=== PATIENT | male | born 1945 | race Caucasian/White ===

== ENCOUNTER → 2023-06-25 08:49 | Outpatient (REF) | payer OTHER, SELFPAY | LOC: DHCBC MAIN 08:49 | PROVIDERS: ATTENDING PHYSICIAN Internal Medicine; FAMILY PHYSICIAN Physician Assistant | DX: I48.0 Paroxysmal atrial fibrillation (principal); I10 Essential (primary) hypertension; I35.1 Nonrheumatic aortic (valve) insufficiency; I77.810 Thoracic aortic ectasia; R42 Dizziness and giddiness | CPT/HCPCS: 93306 ==

== ENCOUNTER 2024-11-10 12:28 | Emergency (ER) | payer OTHER, SELFPAY ==
[2024-11-10] VITALS (30 sets, daily range): BP systolic 126–149; BP diastolic 71–101; BMI 28.1
--- NOTE | 2024-11-10 14:29 | ED.GENMED ---
History of Present Illness
<JOAN Victor - Last Filed: 11/10/24 19:52>
General
Chief Complaint: Heart Rate Problem
Source: patient
Exam Limitations: none
Time Seen by Provider: 11/10/24 14:10
Nursing documentation reviewed up to this point in time: agreed with
History of Present Illness
History of Present Illness:
Patient is a 79-year-old male with past with history of A-fib presents to the ER for evaluation of A-fib. Patient reports yesterday morning around 5:15 in the morning he went into A-fib. Typically he has a normal sinus rhythm but reports he cannot
tell the exact time he goes into A-fib. He broke out a typical sweat and felt his pulse which was irregular. He does not take Eliquis daily as prescribed however he does take when he goes into A-fib. He took a dose of Eliquis yesterday morning.
He also took additional metoprolol. He has taken 3 doses of Eliquis since he went into A-fib for persistent A-fib. He was sent by Dr. Cadet for cardioversion. Dr. Cadet is aware the patient is here.
Patient denies any recent fever chills chest pain shortness of breath. He last ate at midnight.
Past History
<JOAN Victor - Last Filed: 11/10/24 19:52>
Past History
ED Past Medical History: Arrthythmia (recurrent A Fib), GERD, HTN, Hypercholesterolemia, Valvular disease (MR, aortic regurg) and Other (BPH); Negative NIDDM
ED Past Surgical History: Cardiac (multiple ablations/cardioversions) and Other (Left inguinal herniorrhaphy )
Social History
Tobacco: Smoker (Occasional cigars )
Alcohol: None
Drug: Marijuana
Personal:
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
Family History
Family History: Other ([place])
Phy Exam
<JOAN Victor - Last Filed: 11/10/24 19:52>
General Physical Exam
General Presentation: no apparent distress
General age: appears stated age
General Skin: warm and dry
General Habitus: normal
General Mental: alert
General Hydration: appears well hydrated
Cardiovascular Exam
Cardiovascular Exam: no edema, no gallop and irregularly irregular
Pulmonary Exam
Pulmonary Exam: lungs clear and no respiratory distress
Neurological Exam
Neurological Exam: alert and oriented x3
Musculoskeletal Exam
Musculoskeletal Exam: full ROM
Skin Exam
Skin Exam: normal color and warm/dry
Psychiatric Exam
Psychiatric Exam: normal mood/affect
Course
<JOAN Victor - Last Filed: 11/10/24 19:52>
Orders/Labs/Results
Orders:
Orders
11/10/24 12:29
Electrocardiogram (*1) Urgent
Reason for Study: Atrial Fibrillation
EKG- Treatment ONCE
11/10/24 14:31
IV Insert/Care/Rem.- Treatment PRN
11/10/24 14:46
Complete Blood Count/With Diff Urgent
Comprehensive Metabolic Panel Urgent
11/10/24 14:55
0.9% Sodium Chloride 1000 ml [Nss] 1,000 ml IV BOLUS
11/10/24 16:16
Propofol [Diprivan] 20 ml .ROUTE .STK-MED
11/10/24 18:09
Electrocardiogram (*1) Urgent
Reason for Study: Atrial Fibrillation
EKG- Treatment ONCE
Abnormal Lab Results
11/10/24
14:46
Absolute Monos (auto) 0.8 H 10^3/uL
(0.1-0.6)
BUN 21 H mg/dl
(9-20)
Total Bilirubin 1.4 H mg/dl
(0.2-1.3)
11/10/24 14:46
11/10/24 14:46
Vital Signs
Initial and Last Documented VS:
Initial Vital Signs
Temp Pulse Resp BP Pulse Ox
97.8 F 109 20 133/92 98
11/10/24 12:34 11/10/24 12:34 11/10/24 12:34 11/10/24 12:34 11/10/24 12:34
Last Documented Vital Signs
Temp Pulse Resp BP Pulse Ox
97.8 F 65 19 147/84 97
11/10/24 18:32 11/10/24 19:30 11/10/24 19:30 11/10/24 19:30 11/10/24 18:55
Post Doctoral Researcher consulted with Physician
Post Doctoral Researcher consulted with physician?: Yes
Name of Physician Consulted: Anibal
<Darrion Barnett MD - Last Filed: 11/10/24 18:16>
Orders/Labs/Results
Orders:
Orders
11/10/24 12:29
Electrocardiogram (*1) Urgent
Reason for Study: Atrial Fibrillation
EKG- Treatment ONCE
11/10/24 14:31
IV Insert/Care/Rem.- Treatment PRN
11/10/24 14:46
Complete Blood Count/With Diff Urgent
Comprehensive Metabolic Panel Urgent
11/10/24 14:55
0.9% Sodium Chloride 1000 ml [Nss] 1,000 ml IV BOLUS
11/10/24 16:16
Propofol [Diprivan] 20 ml .ROUTE .STK-MED
11/10/24 18:09
Electrocardiogram (*1) Urgent
Reason for Study: Atrial Fibrillation
EKG- Treatment ONCE
Abnormal Lab Results
11/10/24
14:46
Absolute Monos (auto) 0.8 H 10^3/uL
(0.1-0.6)
BUN 21 H mg/dl
(9-20)
Total Bilirubin 1.4 H mg/dl
(0.2-1.3)
11/10/24 14:46
11/10/24 14:46
Vital Signs
Initial and Last Documented VS:
Initial Vital Signs
Temp Pulse Resp BP Pulse Ox
97.8 F 109 20 133/92 98
11/10/24 12:34 11/10/24 12:34 11/10/24 12:34 11/10/24 12:34 11/10/24 12:34
Last Documented Vital Signs
Temp Pulse Resp BP Pulse Ox
97.8 F 65 19 147/84 97
11/10/24 18:32 11/10/24 19:30 11/10/24 19:30 11/10/24 19:30 11/10/24 18:55
Procedures
<Darrion Barnett MD - Last Filed: 11/10/24 18:16>
Cardioversion
Indication:: Afib
Performed by:: Myself
Synchronized?: Yes
Energy Used: 200 joules
Number of attempts: 2... First at 150
Successful?: Yes
ASA Risk Score: Class II
Any reaction or bad outcome to prior sedation/anesthesia?: No history of a reaction
Sedation level to be attained: moderate
Chart and allergies reviewed: Yes
Patient reassessed prior to sedation: Yes
Time out completed at (validating right patient & procedure): 18:05
History of difficult intubation: No
Airway free of obstruction: Yes
Patient has a gag reflex: Yes
Patient is able to open mouth: Yes
Patient has no dentures: Yes
Patient has no loose teeth: Yes
Medication administered by Provider during Moderate Sedation: IV Propofol (mg)
Total dose administered: 60
Time drug administered: 18:07
Start Time: 18:07
Stop Time: 18:18
<JOAN Victor - Last Filed: 11/10/24 19:52>
MDM/Problems Addressed
Differential Diagnosis Includes:
Not limited to arrhythmia, A-fib
MDM/Problems Addressed:
Patient is a 79-year-old male who presents to the ER for evaluation of rapid A-fib. Patient has a history of A-fib however has had ablations in the past and is followed by Dr. Issa cardiology. He is not chronically on Eliquis he only takes it
when he goes into A-fib. He reports that 515 yesterday morning he woke up broke out in a sweat and felt that he was in A-fib and took Eliquis at that time. He has no chest pain or shortness of breath. Case discussed with cardiology Dr. Cadet.
Case discussed with Dr. Barnett. With A-fib being under 48 hours cardioversion was done and successful.
Patient is aware and agreeing to take Eliquis for the next 30 days and to follow-up with Dr. Cadet.
Chronic conditions affecting care:
A-fib hypertension
<JOAN Victor - Last Filed: 11/10/24 19:52>
*Pulse Oximetry
SaO2: 98
Oxygen Mode of Delivery: Room air
Patient hypoxic: no
*EKG
Interpreted by ED Provider?: Yes
Heart Rate: 99
Rate: normal
Rhythm: a-fib
Ischemia: no ischemia
*Critical Care Note
Total Time (30-74mins, 75-104mins- exclusive of procedures): Not Applicable
<JOAN Victor - Last Filed: 11/10/24 19:52>
Patient Management
Discussion with other providers: Claims Director (DR Cadet )
ED Attending Note
<JOAN Victor - Last Filed: 11/10/24 19:52>
-
Portions of this chart may have been created with voice recognition software.� Occasional wrong word or��sound alike� substitutions may have occurred due to the inherent limitations of voice recognition software.
<Darrion Barnett MD - Last Filed: 11/10/24 18:16>
ED Attending Note
Patient seen and examined by attending physician: Yes
I performed the substantive portion of visit, reviewed & personally made and approve the management plan that is documented in note by myself or AHSAN.: Yes
ED Attending Note:
79-year-old male is absolutely sure he went into atrial fibrillation at 515 yesterday morning. Gets suddenly sweaty with a rapid pulse. No chest pain or shortness of breath. History of same. Started on Eliquis then. Does not take Eliquis
chronically. Has been cardioverted in the past. Denies other complaints.
On exam patient is nontoxic in no distress. Warm and dry. Perfusing well. Stable vital signs. Mildly irregular rhythm. Lungs are clear and equal. Abdomen nontender. Warm and dry. Perfusing well.
EKG shows atrial fibrillation.
Patient is a candidate because this has been less than 48 hours. He is sure of the timing. We had discussed with his train clerk who was comfortable with cardioversion. Patient would actually prefer cardioversion. He is aware of the risk.
Patient tolerated the procedure well. First at 150 that a 200. Normal sinus rhythm. Repeat EKG normal sinus rhythm no acute changes.
Discharge Plan
Departure
Patient Disposition: Home (Routine Discharge)
Patient with high blood pressure during this ER visit?: Yes
Condition: Fair
Covid-19: Not Applicable
Discharge Problem:
Atrial fibrillation, cardioversion
Instructions: Atrial Fibrillation (DC), MODERATE SEDATION ADULT, BLOOD PRESSURE
Prescriptions:
No Action
omeprazole 20 MG capsule,delayed release(DR/EC)
20 mg PO HS
Eliquis 5 MG tablet
5 mg PO BID@1200,0000
Patient Comments:
PT TAKES MED 12MN AND 12 NOON
amlodipine 5 MG tablet
5 mg PO HS
lisinopril 20 mg Tablet
20 mg PO DAILY
dofetilide 250 mcg Capsule
250 mcg PO .BID 1200, 0000
metoprolol succinate 25 mg Tablet Extended Release 24 Hr
12.5 mg PO DAILY
Referrals:
Luc Cadet MD [Active, Cardiology]
Lauren Vieyra PA-C [Family Provider, Internal Medicine]
Activity Restrictions/Additional Instructions:
As discussed continue all of your medication including Eliquis. Follow-up with Dr. Cadet in the next several days. return if any worsening of symptoms.
Interventions
Interventions:
*Risk Screen - Suicide Last Done: 11/10/24 12:34
*General Assessment Last Done: 11/10/24 12:34
*Neglect/Abuse Screening Last Done: 11/10/24 12:34
*Nursing Disposition Last Done: 11/10/24 19:45
ED- Pulmonary Assessment Last Done: 11/10/24 15:41
ED- Cardiac Assessment Last Done: 11/10/24 15:41
Discharge Date and Time
Discharge Date/Time: 11/10/24 19:45
Print Language: INDIAN
[2024-11-10] MEDS: NSS 1000 IV (15:02)
[2024-11-10 15:05] LABS: Hematocrit 49.7 % (39.0-52.0); Hemoglobin 17.0 g/dL (13.0-18.0); Mean Corp Hgb Conc. 34.2 g/dL (33.0-37.0); Mean Corpuscular Volume 86.7 fL (80.0-94.0); Nucleated Red Blood Cells % 0 % (-); Platelet Count 234 10^3/uL (130-400); Red Cell Dist. Width 13.1 % (11.5-14.5)
[2024-11-10 15:33] LABS: ALT (SGPT) 23 U/L (0-50); AST (SGOT) 22 U/L (17-59); Albumin 4.5 g/dl (3.5-5.0); Alkaline Phosphatase 86 U/L (38-126); Blood Urea Nitrogen 21 mg/dl (9-20); Calcium 9.5 mg/dl (8.4-10.2); Carbon Dioxide 25 mmol/L (22-30); Chloride 104 mmol/L (98-107); Glucose 96 mg/dl (70-99); Potassium 4.6 mmol/L (3.5-5.1); Sodium 136 mmol/L (135-145); Total Protein 7.3 g/dl (6.3-8.2); eGFR > 60.00
== END 2024-11-10 19:45 | disposition home or self-care (01) ==
LOC: EMR 12:28
PROVIDERS: Nurse Practitioner; EMERGENCY PHYSICIAN Emergency Medicine; FAMILY PHYSICIAN Physician Assistant
DX: I48.91 Unspecified atrial fibrillation (principal); E78.00 Pure hypercholesterolemia, unspecified; I10 Essential (primary) hypertension; F17.290 Nicotine dependence, other tobacco product, uncomplicated; Z79.01 Long term (current) use of anticoagulants
CPT/HCPCS: 92960; 99152; 96360; 99285; 80053; 85025; 93005